=== PATIENT | female | born 1980 | race Hispanic/Latino ===

== ENCOUNTER 2019-04-11 07:19 | Day surgery (SDC) | payer BC ==
[2019-04-10 17:29] VITALS: BP 128/67
[~2019-04-11] VITALS: Ht 162.6 cm; Wt 65.8 kg
[2019-04-11] VITALS (18 sets, daily range): BP systolic 112–129; BP diastolic 66–84
[2019-04-11] MEDS: CEFAZOLIN SODIUM 1 GM VIAL IVP SCH ×2 (06:00→07:55)
[~2019-04-11 07:19] MED LIST: LACTATED RINGERS 1000ML 1,000 ML IV SCH
[2019-04-11] MEDS ORDERED: BUPIVACAINE/EPI/PF 0.25% 30ML VIAL IJ ONE (07:23)
[2019-04-11] MEDS ORDERED: EPINEPHRINE 1 MG/ML 30ML VIAL IJ ONE (07:32)
--- NOTE | 2019-04-11 07:50 | NUR ---
potential for infection: no shaving needed to left leg / left knee, wiped with sandeep: 2% chlorhexidine gluconate cloth patients pre-op skin prep per katarina muse rn
[2019-04-11] MEDS ORDERED: LIDOCAINE PF 2% 5ML ABBOJECT ONE (07:53)
[2019-04-11] MEDS ORDERED: PROPOFOL 10 MG/ML 20ML VIAL IV ONE (07:54)
[2019-04-11] MEDS ORDERED: DEXAMETHASONE SOD PHOSPHATE 10MG/ML 1ML VIAL ONE (07:54)
[2019-04-11] MEDS ORDERED: MIDAZOLAM HCL 1 MG/ML 2ML VIAL ONE (07:54)
[2019-04-11] MEDS ORDERED: FENTANYL CITRATE PF 50 MCG/1 ML 2ML VIAL ONE ×2 (07:54→08:11)
[2019-04-11] MEDS ORDERED: ONDANSETRON HCL 4 MG/2 ML VIAL ONE (07:54)
--- NOTE | 2019-04-11 09:55 | NUR ---
ASSESSMENT RECEIVED PT FROM PACU STAFF GUS. RN. FLOYD TO LEFT KNEE DRY AND INTACT. DENIES ANY PAIN.
--- NOTE | 2019-04-11 10:55 | NUR ---
DISCHARGE ORAL AND WRITTEN DISCHARGE INSTRUCTIONS ALONG WITH PRESCRIPTION GIVEN TO PT AND PTS . INSTRUCTED ON DR. BELTRAN INSTRUCTIONS. NO OTHER QUESTIONS.
== END 2019-04-11 11:00 | disposition home or self-care (01) ==
LOC: DAH 07:19
PROVIDERS: ATTEND Orthopaedic Surgery Sports Medicine
DX: S83.242A Other tear of medial meniscus, current injury, left knee, initial encounter (principal); S83.282A Other tear of lateral meniscus, current injury, left knee, initial encounter; M94.262 Chondromalacia, left knee; X58.XXXA Exposure to other specified factors, initial encounter; Y93.89 Activity, other specified; Y92.89 Other specified places as the place of occurrence of the external cause; Y99.8 Other external cause status; Z98.890 Other specified postprocedural states; Z79.899 Other long term (current) drug therapy
CPT/HCPCS: 29880; 36415; 84703; A4213; A4215; A4221; A4222; A4223; A4649 ×4; A4663; A4930; A5120; A6223; A6260; J0171; J0690; J1100; J2001; J2250; J2405; J2704; J3010 ×2; J3490; J7030; J7120